=== PATIENT | male | born 1970 | race Caucasian/White ===

== ENCOUNTER 2017-12-09 08:48 | Emergency (ER) | payer MEDICAID, OTHER ==
[~2017-12-09] VITALS: Ht 162.6 cm; Wt 66.8 kg
[2017-12-09 09:51] LABS: BASOPHILS # (AUTO) 0.03 x10^3/uL (0-0.1); BASOPHILS % (AUTO) 0 % (0-1); EOSINOPHILS # (AUTO) 0.16 x10^3/uL (0-0.4); EOSINOPHILS % (AUTO) 2 % (1-7); LYMPHOCYTES # (AUTO) 1.84 x10^3/uL (1-3.4); LYMPHOCYTES % (AUTO) 25 % (22-44); MD NO; MEAN CORPUSCULAR HEMOGLOBIN 29.7 pg (27.5-34.5); MEAN CORPUSCULAR HGB CONC 34.1 g/dL (33.2-36.2); MEAN CORPUSCULAR VOLUME 87.1 fL (81-97); MEAN PLATELET VOLUME 9.3 fL (7.4-10.4); MONOCYTES # (AUTO) 0.46 x10^3/uL (0.2-0.8); MONOCYTES % (AUTO) 6 % (2-9); NEUTROPHILS # (AUTO) 4.93 x10^3/uL (1.8-6.8); NEUTROPHILS % (AUTO) 66 % (42-75); PLATELET COUNT 175 x10^3/uL (130-400); RED BLOOD COUNT 6.55 x10^6/uL (4.38-5.82)
[2017-12-09 09:57] LABS: ALANINE AMINOTRANSFERASE 36 U/L (12-78); ALBUMIN 3.9 g/dL (3.4-5.0); ANION GAP 7 mmol/L (5-15); CALCIUM 8.7 mg/dL (8.5-10.1); CHLORIDE 107 mmol/L (98-107); CREATININE 1.26 mg/dL (0.7-1.3)
[2017-12-09 10:00] LABS: ALKALINE PHOSPHATASE 57 U/L (45-117); BILIRUBIN,TOTAL 0.5 mg/dL (0.2-1.0)
[2017-12-09] MEDS ORDERED: SODIUM CHLORIDE 0.9% 1,000ML IVBOLUS ONE (10:00)
[2017-12-09] MEDS ORDERED: FAMOTIDINE 20 MG/2 ML IVP ONE (10:00)
[2017-12-09] MEDS ORDERED: SODIUM CHLORIDE FLUSH 10ML SYR IVF ONE (10:00)
[2017-12-09] MEDS ORDERED: FAMOTIDINE 20 MG/2 ML ONE (10:18)
[2017-12-09] MEDS ORDERED: OMNIPAQUE 350 MG/ML, 100ML BOTTLE ONE (11:04)
[2017-12-09 11:39] VITALS: BP 118/81
== END 2017-12-09 12:29 | disposition home or self-care (01) ==
LOC: ED 10:00
DX: K62.5 Hemorrhage of anus and rectum (principal); R10.84 Generalized abdominal pain; K29.70 Gastritis, unspecified, without bleeding
CPT/HCPCS: 36415; 74021; 74177; 80053; 85025; 96361; 96374; 99285; J7030; Q9967; S0028

== ENCOUNTER 2018-05-21 16:56 | Emergency (ER) | payer SELFPAY ==
[~2018-05-21] VITALS: Ht 162.6 cm; Wt 64.9 kg
[2018-05-21 16:59] VITALS: BP 136/94
[2018-05-21] MEDS ORDERED: AZITHROMYCIN 250 MG TABLET ONE (17:17)
[2018-05-21] MEDS ORDERED: CEFTRIAXONE 250 MG ONE (17:17)
[2018-05-21] MEDS ORDERED: AZITHROMYCIN 250 MG TABLET PO ONE (17:30)
[2018-05-21] MEDS ORDERED: CEFTRIAXONE 250 MG IM ONE (17:30)
== END 2018-05-21 18:02 | disposition home or self-care (01) ==
LOC: ED 17:45
DX: Z20.2 Contact with and (suspected) exposure to infections with a predominantly sexual mode of transmission (principal)
CPT/HCPCS: 87491; 87591; 96372; 99283; J0696